=== PATIENT | female | born 1995 | race Caucasian/White ===

== ENCOUNTER 2016-04-17 22:56 | Emergency (ER) | payer BC ==
[2016-04-17] MEDS ORDERED: Ibuprofen TAB* 600 MG PO ONE (23:29)
[2016-04-17 23:54] LABS: Hematocrit 41 % (35-47); Hemoglobin 13.8 g/dl (12.0-16.0); Mean Corpuscular HGB Conc 34 g/dl (31-36); Mean Corpuscular Hemoglobin 31 pg (27-31); Mean Corpuscular Volume 91 fL (80-97); Mean Platelet Volume 7 um3 (7.4-10.4); Red Blood Count 4.45 10^6/ul (4.0-5.4); Red Cell Distribution Width 13 % (10.5-15); White Blood Count 10.9 10^3/ul (3.5-10.8)
[2016-04-18 00:10] LABS: Albumin 4.6 g/dL (3.2-5.2); BUN/Creatinine Ratio 21.1 (8-20); Calcium 9.7 mg/dL (8.6-10.3); Globulin 2.7 g/dL (2-4); Potassium 3.8 mmol/L (3.5-5.0); Total Bilirubin 0.4 mg/dL (0.2-1.0); Total Protein 7.3 g/dL (6.4-8.9)
--- NOTE | 2016-04-18 01:29 | ED ---
Fartun Childs Matthew, scribed for Jace Resendiz on 04/17/16 at 2313 . HPI Chest Pain - HPI Summary HPI Summary: A 20 y/o female presents to the ED with gradually worsening left sided chest pain since 18:00 yesterday. The pain is described as heaviness and radiates down the left side of the chest. The patient denies nausea, vomiting, dizziness , and SOB. The pain is worse with deep breaths and certain position. No FHx of CAD. The patient does not smoke or use control. 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 - History of Current Complaint Chief Complaint: EDChestPainROMI Time Seen by Provider: 04/17/16 23:11 Hx Obtained From: Patient Onset/Duration: Started Days Ago, Atraumatic, Still Present Timing: Constant Initial Severity: Moderate Current Severity: Moderate Chest Pain Location: Mid Sternal Chest Pain Radiates: No Character: Heaviness Aggravating Factor(s): Position, Deep Breaths Associated Signs and Symptoms: Positive: Chest Pain. Negative: Dizziness, Shortness of Breath, Diaphoresis, Nausea, Abdominal Pain, Vomiting - Allergy/Home Medications Allergies/Adverse Reactions: Allergies Allergy/AdvReac Type Severity Reaction Status Date / Time pollen Allergy Eyes Uncoded 11/27/15 18:43 Itchy/Swollen/Red/Watery PMH/Surg Hx/FS Hx/Imm Hx Endocrine/Hematology History: Denies: Hx Diabetes, Hx Thyroid Disease Cardiovascular History: Reports: Hx Hypertension - hypotension Respiratory History: Denies: Hx Asthma, Hx Chronic Obstructive Pulmonary Disease (COPD) GI History: Denies: Hx Ulcer - Surgical History Surgery Procedure, Year, and Place: wisdom teeth 09/19; right ACL Spring 2013 - Immunization History Date of Tetanus Vaccine: utd Date of Influenza Vaccine: utd Infectious Disease History: Denies: Hx Hepatitis, Hx Human Immunodeficiency Virus (HIV), Traveled Outside the [place] in Last 30 Days - Family History Known Family History: Negative: Cardiac Disease, Blood Disorder - Social History Alcohol Use: Occasionally Substance Use Type: Reports: None Smoking Status (MU): Never Smoked Tobacco Review of Systems Constitutional: Negative Negative: Skin Diaphoresis Eyes: Negative ENT: Negative Positive: Chest Pain Respiratory: Negative Negative: Shortness Of Breath Gastrointestinal: Negative Negative: Abdominal Pain, Vomiting, Nausea Genitourinary: Negative Musculoskeletal: Negative Skin: Negative Neurological: Negative Psychological: Normal All Other Systems Reviewed And Are Negative: Yes Physical Exam Triage Information Reviewed: Yes Vital Signs Reviewed: Yes Appearance: Positive: Well-Appearing, No Pain Distress Skin: Positive: Warm, Skin Color Reflects Adequate Perfusion, Dry Head/Face: Positive: Normal Head/Face Inspection Eyes: Positive: EOMI, COLIN ENT: Positive: Normal ENT inspection Neck: Positive: Supple, Nontender Respiratory/Lung Sounds: Positive: Clear to Auscultation, Breath Sounds Present Cardiovascular: Positive: RRR, Pulses are Symmetrical in both Upper and Lower Extremities Abdomen Description: Positive: Nontender, Soft Bowel Sounds: Positive: Present Musculoskeletal: Positive: Other - reproducible left chest tenderness Neurological: Positive: Normal, Sensory/Motor Intact, Alert, Oriented to Person Place, Time Psychiatric: Positive: Affect/Mood Appropriate - Diller Coma Scale Coma Scale Total: 15 Diagnostics - Laboratory Result Diagrams: 04/17/16 23:45 04/17/16 23:45 Lab Statement: Any lab studies that have been ordered have been reviewed, and results considered in the medical decision making process. - Radiology CXR Xray Interpretation: No Acute Changes Radiology Interpretation Completed By: ED Physician - EKG 23:01 Cardiac Rate: NL - 83 bpm EKG Rhythm: Sinus Rhythm EKG Interpretation: No Acute Changes Chest Pain Course/Dx - Course Assessment/Plan: A 20 y/o female presents to the ED with gradually worsening left sided chest pain since 18:00 yesterday. The pain is described as heaviness and radiates down the left side of the chest. The patient denies nausea, vomiting, dizziness, and SOB. The pain is worse with deep breaths and certain position. No FHx of CAD. The patient does not smoke or use control. CXR showed no acute changes. EKG shows NSR at 83 bpm. Labs were reviewed and troponin was 0.00. The patient will be discharged home to follow-up with her PCP. - Diagnoses Provider Diagnoses: Chest pain, Chest wall pain, Costochondritis Discharge - Discharge Plan Condition: Stable Disposition: HOME Prescriptions: Ibuprofen TAB* [Motrin TAB* 600 MG] 600 mg PO Q8H PRN #21 tab PRN Reason: Pain Patient Education Materials: Chest Pain (ED), Costochondritis (ED), Chest Wall Pain (ED) Referrals: Liang Weller MD [Primary Care Provider] - 3 Days Additional Instructions: Please follow-up with your primary care physician in 3 days. The documentation as recorded by the Fartun hamilton Matthew accurately reflects the service I personally performed and the decisions made by , Jace Resendiz.
[2016-04-18 01:52] VITALS: BP 103/62
--- NOTE | 2016-04-18 07:58 | RAD ---
Indication: Chest pain. 2 views of the chest were reviewed. No mediastinal shift is noted. Mild pectus excavatum deformity is noted. Lung lewis are clear. IMPRESSION: No active cardiopulmonary disease is noted.
== END 2016-04-18 01:53 | disposition home or self-care (01) ==
LOC: ED 22:56
DX: M94.0 Chondrocostal junction syndrome [Tietze] (principal); R07.9 Chest pain, unspecified; R07.89 Other chest pain
CPT/HCPCS: 36415; 71020; 80053; 83880; 84484; 85025; 85379; 85610; 85730; 93005; 99283; A9270-GY

== ENCOUNTER 2016-07-02 15:10 | Emergency (ER) | payer BC ==
[2016-07-02 15:27] VITALS: BP 104/61
--- NOTE | 2016-07-02 16:10 | UC ---
Complaint Female HPI - HPI Summary HPI Summary: 21 y/o female presents to the urgent care c/o pain and frequency on urination for the past 6 days. She reports she has HX of recurrent UTI. She has been Dx with uretral diverticulum. Patient states pain is 4/10 and denies back pain, fever, SOB, N/V/D and vaginal discharge. PT is sexually active. - History Of Current Complaint Chief Complaint: UCGU Stated Complaint: POSS UTI Time Seen by Provider: 07/02/16 15:27 Hx Obtained From: Patient Hx Last Menstrual Period: iud, 06/11/2016 ?: No Onset/Duration: Sudden Onset, Lasting Days, Still Present Severity Initially: Mild Severity Currently: Moderate Pain Intensity: 4 Pain Scale Used: 0-10 Numeric Character: Burning Aggravating Factor(s): [place] Associated Signs And Symptoms: Negative: Negative - Risk Factors Ectopic Risk Factor: IUD Use - Allergies/Home Medications Allergies/Adverse Reactions: Allergies Allergy/AdvReac Type Severity Reaction Status Date / Time pollen Allergy Eyes Uncoded 07/02/16 15:27 Itchy/Swollen/Red/Watery Home Medications: Home Medications Apremilast [Otezla] 30 mg PO DAILY 07/02/16 [History Confirmed 07/02/16] PMH/Surg Hx/FS Hx/Imm Hx - Additional Past Medical History Additional PMH: Psoriasis Endocrine History Of: Denies: Diabetes, Thyroid Disease Cardiovascular History Of: Denies: Cardiac Disorders, Hypertension - hypotension Respiratory History Of: Denies: COPD, Asthma GI/ History Of: Denies: Ulcer - Surgical History Surgical History: Yes Surgery Procedure, Year, and Place: wisdom teeth 09/19; right ACL Spring 2013 - Family History Known Family History: Negative: Cardiac Disease, Blood Disorder - Social History Occupation: Student Alcohol Use: Occasionally Substance Use Type: None Smoking Status (MU): Never Smoked Tobacco - Immunization History Vaccination Up to Date: Yes Review of Systems Skin: Negative Eyes: Negative ENT: Negative Respiratory: Negative Cardiovascular: Negative Gastrointestinal: Negative Genitourinary: Dysuria, Frequency Motor: Negative Neurovascular: Negative Musculoskeletal: Negative Neurological: Negative Psychological: Negative All Other Systems Reviewed And Are Negative: Yes Physical Exam Triage Information Reviewed: Yes Appearance: Well-Appearing, No Pain Distress, Well-Nourished, Thin Vital Signs: Initial Vital Signs Temp 98.7 F 07/02/16 15:21 Pulse 82 07/02/16 15:21 Resp 18 07/02/16 15:21 BP 104/61 07/02/16 15:21 Pulse Ox 99 07/02/16 15:21 Vital Signs Reviewed: Yes Eye Exam: Normal Eyes: Positive: Conjunctiva Clear ENT Exam: Normal ENT: Positive: Normal ENT inspection, Hearing grossly normal, Pharynx normal, TMs normal Dental Exam: Normal Neck exam: Normal Neck: Positive: Supple, Nontender, No Lymphadenopathy Respiratory Exam: Normal Respiratory: Positive: Chest non-tender, Lungs clear, Normal breath sounds Cardiovascular Exam: Normal Cardiovascular: Positive: RRR, No Murmur, Pulses Normal Abdomen Description: Positive: Nontender, No Organomegaly. Negative: CVA Tenderness (R), CVA Tenderness (L) Bowel Sounds: Positive: Present Musculoskeletal Exam: Normal Neurological Exam: Normal Psychological Exam: Normal Skin Exam: Normal Complaint Female Dx - Course Course Of Treatment: Patient with HX of recurrent UTI. UA: +leukoesterase and + blood. Urine culture oredered to identify resistance. Patient advised if bacteria is resistant to Macrobid she will be recall for change of antibiotic. Patient undertood and agreed. Pt also instructed to increase fluid intake and drink cramberry juice. F/u with [facility]- urologist - Differential Dx/Diagnosis Differential Diagnosis/HQI/PQRI: Cervicitis, Renal Colic, Ureteral Stone, Urinary Tract Infection Provider Diagnoses: UTI Discharge - Discharge Plan Condition: Stable Disposition: HOME Prescriptions: Nitrofurantoin Monohyd Macro [Macrobid] 100 mg PO BID #14 cap Phenazopyridine TAB* [Pyridium 100 mg TAB*] 200 mdi PO TID #6 tab Patient Education Materials: Urinary Tract Infection in Women (ED) Referrals: Liang Weller MD [Primary Care Provider] - Additional Instructions: Please take medications as directed, increase fluid intake and f/u with you PCP or return to the clinic if symptoms worsen.
== END 2016-07-02 16:10 | disposition home or self-care (01) ==
LOC: UCEAST 15:10
DX: N39.0 Urinary tract infection, site not specified (principal); N28.89 Other specified disorders of kidney and ureter; Z87.440 Personal history of urinary (tract) infections
CPT/HCPCS: 81003; 87077; 87086; 99212; G0463

== ENCOUNTER 2016-10-11 08:36 | Emergency (ER) | payer BC ==
[2016-10-11 08:41] VITALS: BP 113/70
[2016-10-11] MEDS ORDERED: Phenazopyridine TAB* 100 MG PO ONE (08:46)
--- NOTE | 2016-10-11 09:05 | UC ---
Complaint Female HPI - HPI Summary HPI Summary: This is a 21 yo female with h/o freq UTIs secondary to known urinary diverticulum and psoriasis who presents with c/o dysuria x 2d. She reports no associated fever, back pain, n/v. No c/o vaginal dc, itching, or pain. She has an IUD in place. - History Of Current Complaint Chief Complaint: UCGU Stated Complaint: UTI COMPLAINT Hx Last Menstrual Period: 09/16/16 - Allergies/Home Medications Allergies/Adverse Reactions: Allergies Allergy/AdvReac Type Severity Reaction Status Date / Time pollen Allergy Eyes Uncoded 10/11/16 08:41 Itchy/Swollen/Red/Watery PMH/Surg Hx/FS Hx/Imm Hx Previously Healthy: No - psoriasis, freq UTIs, urethral diverticulum - Surgical History Surgical History: Yes Surgery Procedure, Year, and Place: wisdom teeth 09/19; right ACL Spring 2013 - Family History Known Family History: Positive: None Negative: Cardiac Disease, Blood Disorder - Social History Alcohol Use: Occasionally Substance Use Type: None Smoking Status (MU): Never Smoked Tobacco - Immunization History Vaccination Up to Date: Yes Review of Systems Constitutional: Negative Skin: Negative Eyes: Negative ENT: Negative Respiratory: Negative Cardiovascular: Negative Gastrointestinal: Negative Genitourinary: Dysuria Motor: Negative Neurovascular: Negative Musculoskeletal: Negative Neurological: Negative Psychological: Negative All Other Systems Reviewed And Are Negative: Yes Physical Exam Triage Information Reviewed: Yes Appearance: Well-Appearing Vital Signs: Initial Vital Signs Temp 98.3 F 10/11/16 08:37 Pulse 69 10/11/16 08:37 Resp 16 10/11/16 08:37 BP 113/70 10/11/16 08:37 Pulse Ox 99 10/11/16 08:37 Vital Signs Reviewed: Yes ENT Exam: Normal ENT: Positive: Hearing grossly normal Neck: Positive: Supple, Nontender Respiratory: Positive: Lungs clear, Normal breath sounds. Negative: Crackles, Rhonchi, Wheezing Cardiovascular: Positive: RRR, No Murmur Abdominal Exam: Normal Abdomen Description: Positive: Nontender, Soft. Negative: CVA Tenderness (R), CVA Tenderness (L) Musculoskeletal: Positive: Strength Intact Neurological: Positive: Alert Psychological Exam: Normal Skin Exam: Normal Skin: Negative: rashes Diagnostics - Laboratory Diagnostic Studies Completed/Ordered: UA - 1+ LE, 2+ blood, 2+ protein Complaint Female Dx - Course Course Of Treatment: This is a 21 yo female with h/o freq UTIs and psoriasis who presents with c/o 2d of dysuria. UA suggestive of UTI and exam otherwise benign. Reviewed prior C&S data. Appears to be a non-complicated, treat with a 5d course of Macrobid. Urine sent for culture. - Differential Dx/Diagnosis Differential Diagnosis/HQI/PQRI: Pelvic Inflammatory Disease, Sexually Transmitted Disease, Urinary Tract Infection Provider Diagnoses: 1. Uncomplicated UTI Discharge - Discharge Plan Condition: Stable Disposition: HOME Prescriptions: Nitrofurantoin Monohyd Macro [Macrobid] 100 mg PO BID #10 cap Phenazopyridine 200 mg (NF) [Pyridium 200 MG tab *] 200 mg PO TID PRN #15 tab PRN Reason: dysuria Patient Education Materials: Urinary Tract Infection in Women (ED) Referrals: Liang Weller MD [Primary Care Provider] - If Needed Additional Instructions: Instructions: 1. Please take medication as directed 2. If symptoms persist, please follow up here or with your primary care provider
== END 2016-10-11 09:03 | disposition home or self-care (01) ==
LOC: UCEAST 08:36
DX: N39.0 Urinary tract infection, site not specified (principal); B95.7 Other staphylococcus as the cause of diseases classified elsewhere; Z87.440 Personal history of urinary (tract) infections; Z97.5 Presence of (intrauterine) contraceptive device; N36.1 Urethral diverticulum; L40.9 Psoriasis, unspecified
CPT/HCPCS: 81003; 87077; 87086; 99212; A9270-GY; G0463

== ENCOUNTER 2017-03-28 00:39 | Emergency (ER) | payer BC ==
[2017-03-28] MEDS ORDERED: Ibuprofen TAB* 800 MG PO ONE (02:21)
--- NOTE | 2017-03-28 02:30 | ED ---
Lower Extremity - HPI Summary HPI Summary: Patient here with acute on chronic right knee pain. She reports this "pops out " from time to time and she pushes it back in. Tonight it popped out while she was sleeping in bed (got caught in the sheets, twisted in an odd fashion) and has not been able to push it back into place. She reports history of ACL tear with graft and more recently a meniscal tear (MRI report available here). She' s been following with her PCP for recent injury however plans to follow-up with her orthopedic surgeon in [place] for the new meniscal tear. She denies numbness, tingling or weakness however feels her leg is not as strong at the knee joint since this injury tonight - doesn't want it to drag. She has reapplied her knee immobilizer which she's not been wearing since surgery until tonight however does not feel most comfortable in full extension position - prefers some degree of flexion in her knee. Has not had anything for pain in a while - would like ibuprofen at this point in time. She is icing her knee. Came to ED on crutches. LMP: sporadic - has mirena IUD. - History of Current Complaint Chief Complaint: EDExtremityLower Stated Complaint: RT KNEE PAIN Time Seen by Provider: 03/28/17 00:52 Hx Obtained From: Patient, Family/Web Operations Lead - father Hx Last Menstrual Period: 09/16/16 Pain Intensity: 8 - Allergies/Home Medications Allergies/Adverse Reactions: Allergies Allergy/AdvReac Type Severity Reaction Status Date / Time pollen Allergy Eyes Uncoded 02/09/17 11:20 Itchy/Swollen/Red/Watery PMH/Surg Hx/FS Hx/Imm Hx Previously Healthy: Yes Endocrine/Hematology History: Denies: Hx Anticoagulant Therapy, Hx Blood Disorders, Hx Diabetes, Hx Thyroid Disease Cardiovascular History: Denies: Hx Hypertension - hypotension, Hx Pacemaker/ICD, Other Cardiovascular Problems/Disorders Respiratory History: Denies: Hx Asthma, Hx Chronic Obstructive Pulmonary Disease (COPD) GI History: Denies: Hx Ulcer History: Denies: Hx Renal Disease Sensory History: Denies: Hx Hearing Aid Psychiatric History: Denies: Hx Panic Disorder - Surgical History Surgery Procedure, Year, and Place: wisdom teeth 09/19; right ACL Spring 2013 - Immunization History Date of Tetanus Vaccine: utd Date of Influenza Vaccine: utd Infectious Disease History: No Infectious Disease History: Denies: Hx Clostridium Difficile, Hx Hepatitis, Hx Human Immunodeficiency Virus (HIV), Hx of Known/Suspected MRSA, Hx Shingles, Hx Tuberculosis, Hx Known/ Suspected VRE, Hx Known/Suspected VRSA, History Other Infectious Disease, Traveled Outside the [place] in Last 30 Days - Family History Known Family History: Positive: None Negative: Cardiac Disease, Blood Disorder - Social History Occupation: Student Lives: With Family Alcohol Use: Occasionally Hx Substance Use: No Substance Use Type: Reports: None Hx Tobacco Use: No Smoking Status (MU): Never Smoked Tobacco Review of Systems Positive: no symptoms reported Positive: Arthralgia, Decreased ROM Skin: Negative Neurological: Negative Psychological: Normal All Other Systems Reviewed And Are Negative: Yes Physical Exam Triage Information Reviewed: Yes Vital Signs On Initial Exam: Initial Vitals Temp Pulse Resp BP Pulse Ox 99.4 F 128 18 128/82 98 03/28/17 00:41 03/28/17 00:41 03/28/17 00:41 03/28/17 00:41 03/28/17 00:41 Vital Signs Reviewed: Yes Appearance: Positive: Well-Appearing, Well-Nourished, Pain Distress - none at rest, mild w/ movement Skin: Positive: Warm, Skin Color Reflects Adequate Perfusion, Dry - healed vertical scar over anterior Rt knee; diffuse erythematous spots over B/L LE's ( pt reports this is her psoriasis) Head/Face: Positive: Normal Head/Face Inspection Eyes: Positive: Normal, EOMI ENT: Positive: Hearing grossly normal Respiratory/Lung Sounds: Positive: Breath Sounds Present Cardiovascular: Positive: Pulses are Symmetrical in both Upper and Lower Extremities. Negative: Leg Edema Left, Leg Edema Right Musculoskeletal: Positive: Strength/ROM Intact - can move toes, ankle and hip - she can move her Rt knee however it painful; pt has lax joints in general ( observed w/ Lt knee exam), Limited @ - Rt knee limited ROM d/t pain; mild anterior knee edema compared to Lt; popliteal fossa NTTP; NO GROSS DEFORMITY; laxity assessment limited d/t pt's pain w/ minimal movement, Pain @ - TTP over Rt medial knee (tibial plateau is more prominent and palpable on Rt than Lt). Neurological: Positive: Sensory/Motor Intact, Alert, Oriented to Person Place, Time, CN Intact II-III Psychiatric: Positive: Anxious - pleasant, cooperative Diagnostics - Vital Signs Vital Signs Temp Pulse Resp BP Pulse Ox 03/28/17 00:41 99.4 F 128 18 128/82 98 - Laboratory Diagnostic Studies Comment: XR: no acute findings Lab Statement: Any lab studies that have been ordered have been reviewed, and results considered in the medical decision making process. Lower Extremity Course/Dx - Course Course Of Treatment: Patient here with acute on chronic right knee pain. Reports she's had an ACL tear with repair in the past. She just had an MRI and report indicates meniscal tear with cyst. Suspect her pain tonight is from exacerbation of meniscal tear with possible cartilage and/or cyst lodged in the joint creating a sensation of disconnection. No gross deformity observed and x- rays without acute findings. Patient will be discharged with rest, ice, compression with Booker wrap as tolerated and knee immobilizer to prevent any excess movement if ligament or tendon derangement is in fact a factor here. She ambulated him with crutches and may continue to remain nonweightbearing until she follows up with PCP and/or director of orthopedics. She will call in the morning. Review danger signs and symptoms of when to return to the emergency department. Patient father agree with plan. - Diagnoses Provider Diagnoses: Right knee pain Discharge - Discharge Plan Condition: Stable Disposition: HOME Patient Education Materials: Knee Pain (ED) Forms: *School Release Referrals: Levi Asif MD [Medical Doctor] - Liang Weller MD [Primary Care Provider] - Additional Instructions: Rest, ice, elevate, wear knee immobilizer for stability Use crutches to ambulate - no weight bearing Take naproxen with food alternating with acetaminophen for pain Follow-up with orthopedics tomorrow - call in the morning to schedule an appointment tomorrow or Tuesday *If you develop numbness, intractable pain, return to ED
[2017-03-28 03:37] VITALS: BP 116/81
--- NOTE | 2017-03-28 07:52 | RAD ---
INDICATION: Atraumatic right knee pain COMPARISON: None TECHNIQUE: 2 view radiograph of the left knee. FINDINGS: Postsurgical changes are consistent with ACL reconstruction. Otherwise the visualized bones are well-corticated and properly aligned. The joint spaces are properly maintained. There is no radiographic evidence of joint effusion. There is no acute fracture, dislocation or other focal bony abnormality. IMPRESSION: No radiographically apparent acute abnormality of the right knee. If the patient's symptoms persist, follow-up imaging is recommended.
== END 2017-03-28 03:35 | disposition home or self-care (01) ==
LOC: ED 00:39
DX: M25.561 Pain in right knee (principal)
CPT/HCPCS: 99282; A9270-GY

== ENCOUNTER 2017-06-06 19:50 | Emergency (ER) | payer BC ==
[2017-06-06 20:10] VITALS: BP 100/65
--- NOTE | 2017-06-06 20:16 | UC ---
Complaint Female HPI - HPI Summary HPI Summary: Pt presents with pelvic discomfort. She tells me that for the last 2 days she has had a pressure and aching in her suprapubic region. She says that she has a history of UTIs, almost monthly, but this feels a little different. She took AZO today and that did not improve her symptoms. She is having some urinary pressure and frequency, but not as much as she usually does with UTIs. She has an IUD and last had intercourse 2 days ago - felt this "discomfort" directly after and noticed some spotting when she went to the bathroom later that night. Denies fever, chills, SOB, chest pain, abdominal pain, n/v/d/c, vaginal discharge/odor, or flank pain. - History Of Current Complaint Chief Complaint: UCGU Stated Complaint: burning urination Time Seen by Provider: 06/06/17 20:16 Hx Obtained From: Patient Hx Last Menstrual Period: IUD Onset/Duration: Sudden Onset Timing: Constant Severity Initially: Moderate Severity Currently: Moderate Pain Intensity: 6 Pain Scale Used: 0-10 Numeric - Allergies/Home Medications Allergies/Adverse Reactions: Allergies Allergy/AdvReac Type Severity Reaction Status Date / Time pollen Allergy Eyes Uncoded 06/06/17 20:10 Itchy/Swollen/Red/Watery Home Medications: Home Medications Cranberry Conc/C/Bacill Coag [Azo Cranberry Tablet] 1 each PO 06/06/17 [History] Iud* 06/06/17 [History] Topical Steroid Ointments* 06/06/17 [History] PMH/Surg Hx/FS Hx/Imm Hx - Additional Past Medical History Additional PMH: None Previously Healthy: Yes Other History Of: Negative For: Anticoagulant Therapy - Surgical History Surgical History: Yes Surgery Procedure, Year, and Place: wisdom teeth 09/19; right ACL Spring 2013, RIGHT MEDIAL MENISCUS REMOVAL - Family History Known Family History: Positive: None Negative: Cardiac Disease, Blood Disorder - Social History Occupation: Employed Full-time Lives: With Family Alcohol Use: Occasionally Substance Use Type: None Smoking Status (MU): Never Smoked Tobacco - Immunization History Vaccination Up to Date: Yes Review of Systems Constitutional: Negative Skin: Negative Respiratory: Negative Cardiovascular: Negative Gastrointestinal: Negative Genitourinary: Frequency, Urgency, Vaginal/Penile Pain Neurovascular: Negative Neurological: Negative Psychological: Negative All Other Systems Reviewed And Are Negative: Yes Physical Exam - Summary Physical Exam Summary: GENERAL: NAD. WDWN. No pain distress. SKIN: No rashes, sores, lesions, or open wounds. NECK: Supple. Nontender. No lymphadenopathy. CHEST: CTAB. No r/r/w. No accessory muscle use. Breathing comfortably and in no distress. CV: RRR. Without m/r/g. Pulses intact. Brisk cap refill. ABDOMEN: Soft. NTTP. No distention or guarding. No organomegaly. No CVA tenderness. Bowel sounds present NEURO: Alert. CN II-XII grossly intact. PSYCH: Age appropriate behavior. Triage Information Reviewed: Yes Vital Signs: Initial Vital Signs Temp 97.5 F 06/06/17 20:06 Pulse 87 06/06/17 20:06 Resp 16 06/06/17 20:06 BP 100/65 06/06/17 20:06 Pulse Ox 99 06/06/17 20:06 Pelvic Exam: Positive: External Exam Normal, No Cerv. Motion Tender, No Masses, Other - Mild scant yellow/brown discharge.. Negative: Active Bleeding, Blood, Cervicitis, Lesions, Mass, Ulcers - Additional Comments Bozena MCGEE was assisted with pelvic exam Complaint Female Dx - Course Course Of Treatment: UA is unreliable today due to AZO. Cultures for BV and yeast were obtained. Pt did not want testing for GC/Chlamydia. I will treat her as if this is a UTI and call with the results of her vaginal culture and her urine culture. Her past UTIs have shown staph and susceptible to macrobid, which she tolerates well. If all cultures negative - her pain could be related to recent intercourse and if persists, should have f[facility]. - Differential Dx/Diagnosis Provider Diagnoses: Suprapubic pain. Urinary frequency Discharge - Sign-Out/Discharge Documenting (check all that apply): Discharge/Admit/Transfer - Discharge Plan Condition: Stable Disposition: HOME Prescriptions: Nitrofurantoin Monohyd/M-Cryst [Macrobid 100 mg Capsule] 100 mg PO BID #10 cap Phenazopyridine 200 mg (NF) [Pyridium 200 MG tab *] 200 mg PO TID #6 tab Patient Education Materials: Urinary Tract Infection in Women (DC) Referrals: Liang Weller MD [Primary Care Provider] - Additional Instructions: If you develop a fever, shortness of breath, chest pain, new or worsening symptoms - please call your PCP or go to the ED. - Billing Disposition and Condition Condition: STABLE Disposition: HOME
[2017-06-06] MEDS ORDERED: Nitrofurantoin Macrocrystals* 50 MG CAP PO ONE (20:53)
[2017-06-06] MEDS ORDERED: Phenazopyridine TAB* 100 MG PO ONE (20:54)
--- NOTE | 2017-06-09 11:08 | UC ---
- Progress Note Progress Note: Pt with + E. coli await sensitivity Pt on macrobid no change 06/09/2017 [facility] Discharge - Sign-Out/Discharge Documenting (check all that apply): Discharge/Admit/Transfer - Discharge Plan Condition: Stable Disposition: HOME Prescriptions: Nitrofurantoin Monohyd/M-Cryst [Macrobid 100 mg Capsule] 100 mg PO BID #10 cap Phenazopyridine 200 mg (NF) [Pyridium 200 MG tab *] 200 mg PO TID #6 tab Patient Education Materials: Urinary Tract Infection in Women (DC) Referrals: Liang Weller MD [Primary Care Provider] - Additional Instructions: If you develop a fever, shortness of breath, chest pain, new or worsening symptoms - please call your PCP or go to the ED. - Billing Disposition and Condition Condition: STABLE Disposition: HOME
== END 2017-06-06 21:05 | disposition home or self-care (01) ==
LOC: UCEAST 19:50
DX: R10.2 Pelvic and perineal pain (principal); R35.0 Frequency of micturition; B96.20 Unspecified Escherichia coli [E. coli] as the cause of diseases classified elsewhere; Z87.440 Personal history of urinary (tract) infections; Z97.5 Presence of (intrauterine) contraceptive device
CPT/HCPCS: 87077; 87086; 87186; 87480; 87510; 99212; A9270-GY; G0463

== ENCOUNTER 2017-07-31 20:00 | Emergency (ER) | payer BC ==
[2017-07-31 21:04] VITALS: BP 121/79
--- NOTE | 2017-07-31 21:30 | UC ---
Complaint Female HPI - HPI Summary HPI Summary: ONSET LAST NIGHT OF DYSURIA, URINARY FREQUENCY AND URGENCY. MILD NAUSEA. NO FEVER OR BACK PAIN. HAS H/O RECURRENT UTI SINCE AGE 15. GETS THEM ABOUT 5-6 TIMES PER YEAR. - History Of Current Complaint Chief Complaint: UCGU Stated Complaint: POSS UTI Time Seen by Provider: 07/31/17 21:26 Hx Obtained From: Patient Hx Last Menstrual Period: [id number] Onset/Duration: Gradual Onset, Lasting Days - 1 DAY, Still Present Severity Initially: Moderate Severity Currently: Moderate Pain Intensity: 4 Pain Scale Used: 0-10 Numeric Character: Burning Aggravating Factor(s): Urination Alleviating Factor(s): Nothing Associated Signs And Symptoms: Negative: Fever, Back Pain, Vaginal Bleeding/ Discharge, Nausea - Allergies/Home Medications Allergies/Adverse Reactions: Allergies Allergy/AdvReac Type Severity Reaction Status Date / Time pollen Allergy Eyes Uncoded 07/31/17 21:05 Itchy/Swollen/Red/Watery PMH/Surg Hx/FS Hx/Imm Hx - Additional Past Medical History Additional PMH: PSORIASIS Other History Of: Negative For: Anticoagulant Therapy - Surgical History Surgical History: Yes Surgery Procedure, Year, and Place: wisdom teeth 09/19; right ACL Spring 2013, RIGHT MEDIAL MENISCUS REMOVAL - Family History Known Family History: Positive: None Negative: Cardiac Disease, Blood Disorder - Social History Alcohol Use: Weekly Substance Use Type: None Smoking Status (MU): Never Smoked Tobacco - Immunization History Vaccination Up to Date: Yes Review of Systems Constitutional: Negative Respiratory: Negative Cardiovascular: Negative Gastrointestinal: Negative Genitourinary: Dysuria, Frequency, Urgency All Other Systems Reviewed And Are Negative: Yes Physical Exam Triage Information Reviewed: Yes Appearance: Well-Appearing, No Pain Distress, Well-Nourished Vital Signs: Initial Vital Signs Temp 98.3 F 07/31/17 21:01 Pulse 83 07/31/17 21:01 Resp 16 07/31/17 21:01 BP 121/79 07/31/17 21:01 Pulse Ox 99 07/31/17 21:01 Vital Signs Reviewed: Yes Eyes: Positive: Conjunctiva Clear ENT: Positive: Hearing grossly normal Neck: Positive: Supple Respiratory: Positive: No respiratory distress, No accessory muscle use Cardiovascular: Positive: Pulses Normal Abdomen Description: Positive: Soft, Other: - MILDLY TENDER SUPRAPUBIC. Negative: CVA Tenderness (R), CVA Tenderness (L), Distended, Guarding Musculoskeletal: Positive: No Edema Neurological: Positive: Alert Psychological: Positive: Age Appropriate Behavior Skin: Negative: rashes Diagnostics - Laboratory Diagnostic Studies Completed/Ordered: URINE DIP SP. GR. 1.030, 1+ LEUKS, 3+ BLOOD, 3+ BLOOD, TRACE KETONES, POS NITRITES Complaint Female Dx - Course Course Of Treatment: REVIEWED URINE CULTURES FROM PAST 2 YEARS. PATIENT HAS GROWN ESCHERICHIA COLI RESISTANT TO BACTRIM AND ONLY INTERMEDIATELY SENSITIVE TO MACROBID. WILL TREAT WITH CIPRO TWICE DAILY FOR 5 DAYS. ADVISED TO STAY WELL-HYDRATED. DISCUSSED BLACK BOX WARNING ON FLUOROQUINOLONES. PT UNDERSTANDS AND IS WILLING TO TAKE CIPRO. ADVISED TO CONSIDER UROLOGY EVALUATION FOR RECURRENT UTI. URINE SENT FOR CULTURE AND UREAPLASMA/MYCOPLASMA PCR. - Differential Dx/Diagnosis Provider Diagnoses: UTI Discharge - Sign-Out/Discharge Documenting (check all that apply): Discharge/Admit/Transfer - Discharge Plan Condition: Stable Disposition: HOME Prescriptions: Ciprofloxacin TAB* [Cipro 500 MG TAB*] 500 mg PO BID #9 tab Phenazopyridine TAB* [Pyridium TAB*] 200 mg PO TID #6 tab Patient Education Materials: Urinary Tract Infection in Women (ED) Referrals: [facility] [Provider Group] Liang Weller MD [Primary Care Provider] - If Needed Additional Instructions: URINE DIP CONSISTENT WITH URINARY TRACT INFECTION. ON REVIEW OF YOUR MORE RECENT URINE CULTURES YOU HAVE GROWN ESCHERICHIA COLI SEVERAL TIMES THAT HAS BEEN RESISTANT TO BACTRIM AND ONLY INTERMEDIATELY SENSITIVE TO MACROBID. WILL GIVE CIPRO TWICE DAILY FOR 5 DAYS. URINE SENT FOR CULTURE. WILL ALSO SEND YOUR URINE TO EVALUATE FOR MYCOPLASMA AND UREAPLASMA WHICH CAN BE ATYPICAL CAUSES OF UTI. CONSIDER EVALUATION BY UROLOGY FOR YOUR RECURRENT UTI. BE SURE TO STAY WELL-HYDRATED. - Billing Disposition and Condition Condition: STABLE Disposition: Home
[2017-07-31] MEDS ORDERED: Ciprofloxacin TAB* 500 MG PO ONE (21:51)
--- NOTE | 2017-08-03 17:05 | UC ---
- Progress Note Progress Note: please call patient to assure symptoms are resolving/resolved. Let her know she was positive for both E.Coli and Ureaplasma--- Cipro is the treatment f choice for both of these . Be sure she arranges re assessment Discharge - Sign-Out/Discharge Documenting (check all that apply): Post-Discharge Follow Up - Discharge Plan Condition: Stable Disposition: HOME Prescriptions: Ciprofloxacin TAB* [Cipro 500 MG TAB*] 500 mg PO BID #9 tab Phenazopyridine TAB* [Pyridium TAB*] 200 mg PO TID #6 tab Patient Education Materials: Urinary Tract Infection in Women (ED) Referrals: [facility] [Provider Group] Liang Weller MD [Primary Care Provider] - If Needed Additional Instructions: URINE DIP CONSISTENT WITH URINARY TRACT INFECTION. ON REVIEW OF YOUR MORE RECENT URINE CULTURES YOU HAVE GROWN ESCHERICHIA COLI SEVERAL TIMES THAT HAS BEEN RESISTANT TO BACTRIM AND ONLY INTERMEDIATELY SENSITIVE TO MACROBID. WILL GIVE CIPRO TWICE DAILY FOR 5 DAYS. URINE SENT FOR CULTURE. WILL ALSO SEND YOUR URINE TO EVALUATE FOR MYCOPLASMA AND UREAPLASMA WHICH CAN BE ATYPICAL CAUSES OF UTI. CONSIDER EVALUATION BY UROLOGY FOR YOUR RECURRENT UTI. BE SURE TO STAY WELL-HYDRATED. - Billing Disposition and Condition Condition: STABLE Disposition: Home
== END 2017-07-31 22:10 | disposition home or self-care (01) ==
LOC: UCEAST 20:00
DX: N39.0 Urinary tract infection, site not specified (principal); Z91.09 Other allergy status, other than to drugs and biological substances
CPT/HCPCS: 81003; 84702; 87077; 87086; 87186; 87798; 99212; A9270-GY; G0463

== ENCOUNTER 2017-11-17 12:49 | Emergency (ER) | payer BC ==
[2017-11-17 13:02] VITALS: BP 116/78
--- NOTE | 2017-11-17 13:02 | UC ---
Complaint Female HPI - HPI Summary HPI Summary: 22 y/o female w h/o recurrent UTIs, last 07/2017, treated here with ABX well, states for past 2 days + urinary freq, urgency, burning. lower badominal pain, mild. no back pain, fevers, chills. + increased water intake, no help. 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, no recent urologist - History Of Current Complaint Chief Complaint: UCGU Stated Complaint: URINARY ISSUE Time Seen by Provider: 11/17/17 13:02 Hx Obtained From: Patient Hx Last Menstrual Period: 11/12/17 ?: No Onset/Duration: Sudden Onset, Lasting Days - x 2 Timing: Constant Severity Initially: Mild Severity Currently: Mild Pain Intensity: 4 Pain Scale Used: 0-10 Numeric - Allergies/Home Medications Allergies/Adverse Reactions: Allergies Allergy/AdvReac Type Severity Reaction Status Date / Time pollen Allergy Eyes Uncoded 11/17/17 13:02 Itchy/Swollen/Red/Watery PMH/Surg Hx/FS Hx/Imm Hx Previously Healthy: No - h/o UTI recurrent since age 15 Other History Of: Negative For: Anticoagulant Therapy - Surgical History Surgical History: Yes Surgery Procedure, Year, and Place: wisdom teeth 09/19; right ACL Spring 2013, RIGHT MEDIAL MENISCUS REMOVAL - Family History Known Family History: Positive: None Negative: Cardiac Disease, Blood Disorder - Social History Alcohol Use: Weekly Substance Use Type: None Smoking Status (MU): Never Smoked Tobacco - Immunization History Vaccination Up to Date: Yes Review of Systems Genitourinary: Dysuria, Frequency, Urgency Is Patient Immunocompromised?: No All Other Systems Reviewed And Are Negative: Yes Physical Exam Triage Information Reviewed: Yes Appearance: Well-Appearing, No Pain Distress, Well-Nourished Vital Signs: Initial Vital Signs Temp 97.7 F 11/17/17 12:59 Pulse 77 11/17/17 12:59 Resp 16 11/17/17 12:59 BP 116/78 11/17/17 12:59 Pulse Ox 99 11/17/17 12:59 Vital Signs Reviewed: Yes Cardiovascular: Positive: RRR, No Murmur Abdomen Description: Positive: No Organomegaly, Soft, Other: - suprapubic tenderness no rebound, no gaurdign. Negative: CVA Tenderness (R), CVA Tenderness (L), Distended, Guarding Psychological Exam: Normal Complaint Female Dx - Course Course Of Treatment: + UA, cultures sent, started on abx, referral for urologist for further work up, eval. - Differential Dx/Diagnosis Differential Diagnosis/HQI/PQRI: Urinary Tract Infection Provider Diagnoses: UTI Discharge - Sign-Out/Discharge Documenting (check all that apply): Patient Departure All imaging exams completed and their final reports reviewed: No Studies - Discharge Plan Condition: Good Disposition: HOME Prescriptions: Amoxicillin/Clavulanate TAB* [Augmentin TAB 875*] 875 mg PO BID #14 tab Phenazopyridine 200 mg (NF) [Pyridium 200 MG tab *] 200 mg PO TID PRN #20 tab PRN Reason: urinary spasms Terbinafine HCl [Lamisil At [place]] 1 % TOPICAL BID #1 tube Patient Education Materials: Urinary Tract Infection in Women (ED) Referrals: Liang Weller MD [Primary Care Provider] - Desmond Quiles MD [Medical Doctor] - Additional Instructions: - Antibiotics as directed -Increase fluid intake - Go to ER with fever, chills, back pain - Follow up with urologist - Motrin, tylenol as needed for pain - Billing Disposition and Condition Condition: GOOD Disposition: Home
[2017-11-17] MEDS ORDERED: Amoxicillin/Clavulanate TAB* 875 MG PO ONE (13:14)
[2017-11-17] MEDS ORDERED: Phenazopyridine TAB* 100 MG PO ONE (13:16)
--- NOTE | 2017-11-19 17:15 | PN ---
Progress Note - Progress Note Date of Service: 11/19/17 Note: patient urine culture grew staph sprophyticus 25-50,000. patient placed on amoxicillin which should be sensitive to. no further action required
--- NOTE | 2017-11-20 07:34 | UC ---
- Progress Note Progress Note: urine culture grew S.saprophyticus, treated with Augmentin, no further action . Discharge - Sign-Out/Discharge Documenting (check all that apply): Patient Departure All imaging exams completed and their final reports reviewed: No Studies - Discharge Plan Condition: Good Disposition: HOME Prescriptions: Amoxicillin/Clavulanate TAB* [Augmentin TAB 875*] 875 mg PO BID #14 tab Phenazopyridine 200 mg (NF) [Pyridium 200 MG tab *] 200 mg PO TID PRN #20 tab PRN Reason: urinary spasms Terbinafine HCl [Lamisil At [place]] 1 % TOPICAL BID #1 tube Patient Education Materials: Urinary Tract Infection in Women (ED) Referrals: Liang Weller MD [Primary Care Provider] - Desmond Quiles MD [Medical Doctor] - Additional Instructions: - Antibiotics as directed -Increase fluid intake - Go to ER with fever, chills, back pain - Follow up with urologist - Motrin, tylenol as needed for pain - Billing Disposition and Condition Condition: GOOD Disposition: Home
== END 2017-11-17 13:33 | disposition home or self-care (01) ==
LOC: UCEAST 12:49
DX: N39.0 Urinary tract infection, site not specified (principal); B95.7 Other staphylococcus as the cause of diseases classified elsewhere; Z87.440 Personal history of urinary (tract) infections
CPT/HCPCS: 81003; 87086; 87088; 99212; A9270-GY; G0463

== ENCOUNTER 2017-12-04 21:47 | Emergency (ER) | payer BC ==
[2017-12-04] MEDS ORDERED: NS 0.9% 1000 ML* 1,000 ML IV ONE (22:12)
--- NOTE | 2017-12-04 22:15 | ED ---
Influenza-Like Illness - HPI Summary HPI Summary: Patient complains of fatigue, fever up to 103.2, chills, headache, dry cough, shortness of breath, lightheadedness starting yesterday. Patient has been taking Tylenol for fever control. Last Tylenol 9 PM. Denies ear pain, neck stiffness, sore throat, CP, nasal congestion, nausea vomiting diarrhea, abdominal pain, change in urine, change in BM. Medical history psoriasis - History of Current Complaint Chief Complaint: EDUpperRespComplaint Time Seen by Provider: 12/04/17 21:56 Hx Obtained From: Patient Onset/Duration: Gradual Onset Severity: Moderate Associated Signs & Symptoms: Fever, Cough, Headache - Allergy/Home Medications Allergies/Adverse Reactions: Allergies Allergy/AdvReac Type Severity Reaction Status Date / Time pollen Allergy Eyes Uncoded 11/17/17 13:02 Itchy/Swollen/Red/Watery PMH/Surg Hx/FS Hx/Imm Hx Endocrine/Hematology History: Denies: Hx Anticoagulant Therapy, Hx Blood Disorders, Hx Diabetes, Hx Thyroid Disease Cardiovascular History: Denies: Hx Hypertension - hypotension, Hx Pacemaker/ICD, Other Cardiovascular Problems/Disorders Respiratory History: Denies: Hx Asthma, Hx Chronic Obstructive Pulmonary Disease (COPD) GI History: Denies: Hx Ulcer History: Denies: Hx Renal Disease Sensory History: Denies: Hx Hearing Aid Psychiatric History: Denies: Hx Panic Disorder - Surgical History Surgery Procedure, Year, and Place: wisdom teeth 09/19; right ACL Spring 2013, RIGHT MEDIAL MENISCUS REMOVAL - Immunization History Date of Tetanus Vaccine: utd Date of Influenza Vaccine: utd Infectious Disease History: No Infectious Disease History: Denies: Hx Clostridium Difficile, Hx Hepatitis, Hx Human Immunodeficiency Virus (HIV), Hx of Known/Suspected MRSA, Hx Shingles, Hx Tuberculosis, Hx Known/ Suspected VRE, Hx Known/Suspected VRSA, History Other Infectious Disease, Traveled Outside the [place] in Last 30 Days - Family History Known Family History: Positive: None Negative: Cardiac Disease, Blood Disorder - Social History Alcohol Use: Weekly Hx Substance Use: No Substance Use Type: Reports: None Hx Tobacco Use: No Smoking Status (MU): Never Smoked Tobacco Review of Systems Positive: Fever, Chills Eyes: Negative ENT: Negative Cardiovascular: Negative Positive: Shortness Of Breath, Cough Gastrointestinal: Negative Genitourinary: Negative Musculoskeletal: Negative Skin: Negative Positive: Headache Psychological: Normal All Other Systems Reviewed And Are Negative: Yes Physical Exam - Summary Physical Exam Summary: Physical exam unremarkable. Triage Information Reviewed: Yes Vital Signs On Initial Exam: Initial Vitals Temp Pulse Resp BP Pulse Ox 99.2 F 123 20 111/71 96 12/04/17 21:49 12/04/17 21:49 12/04/17 21:49 12/04/17 21:49 12/04/17 21:49 Vital Signs Reviewed: Yes Appearance: Positive: Well-Appearing Skin: Positive: Warm Head/Face: Positive: Normal Head/Face Inspection Eyes: Positive: Normal ENT: Positive: Normal ENT inspection Neck: Positive: Supple Respiratory/Lung Sounds: Positive: Clear to Auscultation Cardiovascular: Positive: Normal Abdomen Description: Positive: Nontender Musculoskeletal: Positive: Normal Neurological: Positive: Normal Psychiatric: Positive: Normal AVPU Assessment: Alert - [place] Coma Scale Best Eye Response: 4 - Spontaneous Best Motor Response: 6 - Obeys Commands Best Verbal Response: 5 - Oriented Coma Scale Total: 15 Diagnostics - Vital Signs Vital Signs Temp Pulse Resp BP Pulse Ox 12/04/17 22:02 116 96 12/04/17 22:01 106 114/75 12/04/17 21:49 99.2 F 123 20 111/71 96 - Laboratory Result Diagrams: 12/04/17 22:02 12/04/17 22:02 Lab Statement: Any lab studies that have been ordered have been reviewed, and results considered in the medical decision making process. Flu Symptom Course/Dx - Course Course Of Treatment: Patient complains of fatigue, fever up to 103.2, chills, headache, dry cough, shortness of breath, lightheadedness starting yesterday. Patient has been taking Tylenol for fever control. Last Tylenol 9 PM. Denies ear pain, neck stiffness, sore throat, CP, nasal congestion, nausea vomiting diarrhea, abdominal pain, change in urine, change in BM. Medical history psoriasis. Physical exam unremarkable. Patient tachycardic at 123 at triage. Afebrile. Labs unremarkable. Flu negative. Chest x-ray suspicious for left lower lobe infiltrate. Tachycardia resolved with 1 L of normal saline. Rx for azithromycin. Follow-up with primary care - Diagnoses Provider Diagnoses: Pneumonia Discharge - Sign-Out/Discharge Documenting (check all that apply): Patient Departure - Discharge Plan Condition: Stable Disposition: HOME Patient Education Materials: Pneumonia (ED) Referrals: Liang Weller MD [Primary Care Provider] - Additional Instructions: Take antibiotics as directed. Follow-up with primary care. Return to the ED for any new or worsening symptoms - Billing Disposition and Condition Condition: STABLE Disposition: Home
[2017-12-04 22:19] LABS: ABS Basophils 0 10^3/ul (0-0.2); ABS Eosinophils 0 10^3/ul (0-0.6); ABS Lymphocytes 1.1 10^3/ul (1.0-4.8); ABS Monocytes 0.6 10^3/ul (0-0.8); ABS Neutrophils 5.9 10^3/ul (1.5-7.7); ABS Nucleated RBC 0 10^3/ul; Eosinophil % 0 % (0-6); Hematocrit 38 % (35-47); Lymphocyte % 14.2 % (25-47); Mean Corpuscular HGB Conc 34 g/dl (31-36); Mean Corpuscular Hemoglobin 31 pg (27-31); Mean Corpuscular Volume 91 fL (80-97); Mean Platelet Volume 6.8 um3 (7.4-10.4); Nucleated Red Blood Cells % 0; Platelet Count 194 10^3/ul (150-450); Red Blood Count 4.15 10^6/ul (4.00-5.40); Red Cell Distribution Width 13 % (10.5-15); White Blood Count 7.6 10^3/ul (3.5-10.8)
[2017-12-04 22:31] LABS: EGFR Non-African American 106.4 (>60)
[2017-12-04] MEDS ORDERED: Azithromycin TAB* 250 MG PO ONE (23:16)
[2017-12-04 23:35] VITALS: BP 108/63
--- NOTE | 2017-12-05 07:45 | RAD ---
INDICATION: Shortness of breath and cough. COMPARISON: Comparison is made with a prior study from April 17, 2016. TECHNIQUE: A portable view of the chest was obtained. FINDINGS: Cardiac and mediastinal contours appear to be within normal limits. There is a small left basilar infiltrate. The right lung appears clear. No pleural effusion is seen. IMPRESSION: SMALL LEFT BASILAR INFILTRATE. R0
== END 2017-12-04 23:44 | disposition home or self-care (01) ==
LOC: ED 21:47
DX: J18.9 Pneumonia, unspecified organism (principal)
CPT/HCPCS: 36415; 71045; 80053; 83605; 84702; 85025; 86140; 96360; 99283; A9270-GY

== ENCOUNTER 2018-07-29 08:13 | Emergency (ER) | payer BC ==
[2018-07-29 08:22] VITALS: BP 116/73
[2018-07-29] MEDS ORDERED: Phenazopyridine TAB* 100 MG PO ONE (08:27)
--- NOTE | 2018-07-29 08:34 | UC ---
Complaint Female HPI - HPI Summary HPI Summary: patient reports 2 day history burning urine, frequency. has had hx frequent UTIs. has been evaluated by urology in past. currently on Mirena and has menses 2 weeks ago (irreg). has taken no meds - History Of Current Complaint Chief Complaint: UCGeneralIllness Stated Complaint: URINARY COMPLAINT Time Seen by Provider: 07/29/18 08:15 Hx Obtained From: Patient Hx Last Menstrual Period: July 11. ?: No Onset/Duration: Sudden Onset Timing: Constant Severity Initially: Mild Severity Currently: Moderate Pain Intensity: 5 Character: Burning Aggravating Factor(s): Urination Alleviating Factor(s): Nothing Associated Signs And Symptoms: Positive: Negative. Negative: Fever, Back Pain, Nausea Related Hx: Similar Episode/Dx as: - UTI - Allergies/Home Medications Allergies/Adverse Reactions: Allergies Allergy/AdvReac Type Severity Reaction Status Date / Time pollen Allergy Eyes Uncoded 07/29/18 08:23 Itchy/Swollen/Red/Watery Home Medications: Home Medications Levonorgestrel (Iud) [Mirena IUD] 20 mcg IU 07/29/18 [History] Topical Steroid 07/29/18 [History] PMH/Surg Hx/FS Hx/Imm Hx Previously Healthy: Yes Other History Of: Negative For: Anticoagulant Therapy - Surgical History Surgical History: Yes Surgery Procedure, Year, and Place: wisdom teeth 09/19; right ACL Spring 2013, RIGHT MEDIAL MENISCUS - Family History Known Family History: Positive: None Negative: Cardiac Disease, Blood Disorder - Social History Occupation: Employed Full-time - RN Lives: With Family Alcohol Use: Weekly Alcohol Amount: 1x Substance Use Type: None Smoking Status (MU): Never Smoked Tobacco - Immunization History Vaccination Up to Date: Yes Review of Systems All Other Systems Reviewed And Are Negative: Yes Constitutional: Positive: Negative Skin: Positive: Negative Respiratory: Positive: Negative Cardiovascular: Positive: Negative Genitourinary: Positive: Dysuria, Frequency Neurological: Positive: Negative Psychological: Positive: Negative Is Patient Immunocompromised?: No Physical Exam Triage Information Reviewed: Yes Appearance: Well-Appearing, No Pain Distress, Well-Nourished Vital Signs: Initial Vital Signs Temp 98.9 F 07/29/18 08:18 Pulse 79 07/29/18 08:18 Resp 14 07/29/18 08:18 BP 116/73 07/29/18 08:18 Pulse Ox 98 07/29/18 08:18 Vital Signs Reviewed: Yes Respiratory Exam: Normal Respiratory: Positive: Lungs clear Cardiovascular Exam: Normal Cardiovascular: Positive: RRR Abdominal Exam: Normal Abdomen Description: Negative: CVA Tenderness (R), CVA Tenderness (L) Psychological Exam: Normal Skin Exam: Normal Complaint Female Dx - Differential Dx/Diagnosis Differential Diagnosis/HQI/PQRI: Ureteral Stone, Urinary Tract Infection Provider Diagnosis: UTI (urinary tract infection) Discharge - Sign-Out/Discharge Documenting (check all that apply): Patient Departure All imaging exams completed and their final reports reviewed: No Studies - Discharge Plan Condition: Good Disposition: HOME Prescriptions: Ciprofloxacin TAB* [Cipro 500 MG TAB*] 500 mg PO BID #10 tab Phenazopyridine 200 mg (NF) [Pyridium 200 MG tab *] 200 mg PO TID PRN #9 tab PRN Reason: Pain Patient Education Materials: Urinary Tract Infection in Women (ED) Referrals: Liang Weller MD [Primary Care Provider] - 2 Days (recheck if no better) Additional Instructions: drink plenty of fluids start cipro antibiotic and take as directed pyridium as directed for discomfort report to ER if you experience fever, chills or worsening pain - Billing Disposition and Condition Condition: GOOD Disposition: Home - Attestation Statements Provider Attestation: I was available for consult. This patient was seen by the MARINE. The patient was not presented to, seen by, or examined by me. -Yuliet
--- NOTE | 2018-07-30 16:08 | UC ---
- Progress Note Progress Note: 07/30/2018 Preliminary urine culture positive for E.coli Pt Rx Ciprofloxacin PO which cover for it Awaiting final sensitivity report. No change Candida LUA Course/Dx - Diagnoses Provider Diagnoses: UTI (urinary tract infection) Discharge - Sign-Out/Discharge Documenting (check all that apply): Post-Discharge Follow Up All imaging exams completed and their final reports reviewed: No Studies - Discharge Plan Condition: Good Disposition: HOME Prescriptions: Ciprofloxacin TAB* [Cipro 500 MG TAB*] 500 mg PO BID #10 tab Phenazopyridine 200 mg (NF) [Pyridium 200 MG tab *] 200 mg PO TID PRN #9 tab PRN Reason: Pain Patient Education Materials: Urinary Tract Infection in Women (ED) Referrals: Liang Weller MD [Primary Care Provider] - 2 Days (recheck if no better) Additional Instructions: drink plenty of fluids start cipro antibiotic and take as directed pyridium as directed for discomfort report to ER if you experience fever, chills or worsening pain - Billing Disposition and Condition Condition: GOOD Disposition: Home
== END 2018-07-29 08:54 | disposition home or self-care (01) ==
LOC: UCEAST 08:13
DX: N39.0 Urinary tract infection, site not specified (principal); B96.20 Unspecified Escherichia coli [E. coli] as the cause of diseases classified elsewhere
CPT/HCPCS: 81003; 87077; 87086; 87186; 99212; A9270-GY; G0463

== ENCOUNTER 2019-03-06 16:13 | Emergency (ER) | payer BC ==
[2019-03-06 16:45] VITALS: BP 102/82
--- NOTE | 2019-03-06 17:11 | UC ---
FLU HPI - HPI Summary HPI Summary: 23-year-old female presents with onset of general malaise, fatigue, headache, body aches, chills, nasal congestion, sore throat, and a nonproductive cough. No measured fever. 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 Denies ear pain, dysphagia, chest pain, shortness of breath, abdominal pain, nausea, vomiting, or diarrhea. - History of Current Complaint Chief Complaint: UCGeneralIllness Stated Complaint: FLU LIKE SYMPTOMS Time Seen by Provider: 03/06/19 17:05 Hx Obtained From: Patient Hx Last Menstrual Period: months Pain Intensity: 7 - Allergy/Home Medications Allergies/Adverse Reactions: Allergies Allergy/AdvReac Type Severity Reaction Status Date / Time pollen Allergy Eyes Uncoded 03/06/19 16:44 Itchy/Swollen/Red/Watery Home Medications: Home Medications Ixekizumab [Taltz Autoinjector] 1 vial SUBCUT SEE INSTRUCTIONS 03/06/19 [ History Confirmed 03/06/19] PMH/Surg Hx/FS Hx/Imm Hx Previously Healthy: Yes Other History Of: Negative For: Anticoagulant Therapy - Surgical History Surgical History: Yes Surgery Procedure, Year, and Place: wisdom teeth 09/19; right ACL Spring 2013, RIGHT MEDIAL MENISCUS - Family History Known Family History: Positive: Non-Contributory - Social History Occupation: Employed Full-time Lives: With Family Alcohol Use: Weekly Alcohol Amount: 1x Substance Use Type: None Smoking Status (MU): Never Smoked Tobacco - Immunization History Vaccination Up to Date: Yes Review of Systems All Other Systems Reviewed And Are Negative: Yes Constitutional: Positive: Chills, Fatigue Eyes: Negative: Drainage, Eye Redness ENT: Positive: Sore Throat, Nasal Discharge, Sinus Congestion. Negative: Ear Ache, Sinus Pain/Tenderness Respiratory: Positive: Cough. Negative: Shortness Of Breath Cardiovascular: Negative: Palpitations, Chest Pain Gastrointestinal: Negative: Abdominal Pain, Vomiting, Diarrhea, Nausea Genitourinary: Positive: Negative Musculoskeletal: Positive: Myalgia Neurological: Positive: Headache Physical Exam - Summary Physical Exam Summary: GENERAL APPEARANCE: Well developed, well nourished, alert and cooperative, and appears to be in no acute distress. EYES: Conjunctiva clear. No drainage. EARS: External auditory canals and tympanic membranes clear, hearing grossly intact. NOSE: Moderate nasal congestion. No nasal discharge. THROAT: Pharyngeal erythema. No tonsilar inflammation, swelling, exudate, or lesions. Uvula midline. NECK: Neck supple, non-tender without lymphadenopathy. CARDIAC: Normal S1 and S2. No S3, S4 or murmurs. Rhythm is regular. There is no peripheral edema, cyanosis or pallor. Extremities are warm and well perfused. Capillary refill is less than 2 seconds. Peripheral pulses intact. LUNGS: Clear to auscultation without rales, rhonchi, wheezing or diminished breath sounds. Dry nonproductive cough. ABDOMEN: Positive bowel sounds. Soft, nondistended, nontender. No guarding or rebound. No masses or hepatosplenomegally. MUSKULOSKELETAL: ROM intact to all extremities. No joint erythema or tenderness. Normal muscular development. Normal gait. SKIN: Skin normal color, texture and turgor with no lesions or eruptions. Triage Information Reviewed: Yes Vital Signs: Initial Vital Signs Temp 100.2 F 03/06/19 16:38 Pulse 107 03/06/19 16:38 Resp 17 03/06/19 16:38 BP 102/82 03/06/19 16:38 Pulse Ox 98 03/06/19 16:38 Vital Signs Reviewed: Yes Flu Course/Dx - Course Course Of Treatment: 23-year-old female presents with onset of general malaise, fatigue, headache, body aches, chills, nasal congestion, sore throat, and a nonproductive cough. No measured fever. 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 Denies ear pain, dysphagia, chest pain, shortness of breath, abdominal pain, nausea, vomiting, or diarrhea. Patient had a mildly elevated temperature of 100.1 F with a corresponding tachycardia otherwise vital signs were stable. Patient had moderate nasal congestion, pharyngeal erythema without tonsillar swelling or exudate, no cervical lymphadenopathy, clear bilateral breath sounds, dry nonproductive cough, and otherwise unremarkable exam. Rapid influenza was positive for influenza B. Results reviewed with the patient. We discussed risks and benefits of treating with Tamiflu and patient is electing to do so at this time. Also recommending symptomatic treatment at this time including Tessalon Perles 1 capsule every 8 hours as needed for cough. She is to follow-up with her primary care provider in 5-7 days if symptoms are not improving. Anticipatory guidance warning symptoms were reviewed with patient. Verbalizes understanding and agrees with plan of care. - Differential Dx/Diagnosis Differential Diagnosis/HQI/PQRI: Bronchitis, Influenza, Pneumonia, Upper Respiratory Infection Provider Diagnosis: Influenza B Discharge ED - Sign-Out/Discharge Documenting (check all that apply): Patient Departure All imaging exams completed and their final reports reviewed: No Studies - Discharge Plan Condition: Stable Disposition: HOME Prescriptions: Benzonatate CAP* [Tessalon 100 MG CAP*] 100 mg PO TID PRN #21 cap PRN Reason: Cough Oseltamivir CAP* [Tamiflu CAP*] 75 mg PO BID #10 cap Patient Education Materials: Influenza (ED) Forms: *Work Release Referrals: Liang Weller MD [Primary Care Provider] - Additional Instructions: Your flu test in the clinic today was positive for influenza A. Start Tamiflu 1 capsule twice a day for 5 days. Get plenty of rest. Drink plenty of fluids to avoid dehydration especially if you are running any fever. Take over the counter acetaminophen (Tylenol) or ibuprofen (Advil, Motrin) according to directions as needed for pain or fever. Take Tessalon Perles 1 cap every 8 hours as needed for cough. Use salt water gargles several times a day if you have a sore throat. You may also use Chloraseptic spray or Cepacol lonzenges according to directions which contain a numbing medication and can provide some temporary relief from your sore throat. Follow up with your primary care provider in 7 days if symptoms persist. Seek immediate medical attention in the emergency room if you have fever greater than 100.5 F despite taking acetaminophen or ibuprofen, have chest pain , difficulty breathing, are unable to swallow, or have any worsening of symptoms. - Billing Disposition and Condition Condition: STABLE Disposition: Home
[2019-03-07 10:27] LABS: Influenza B Molecular POSITIVE (Negative)
== END 2019-03-06 17:30 | disposition home or self-care (01) ==
LOC: UCEAST 16:13
DX: J10.1 Influenza due to other identified influenza virus with other respiratory manifestations (principal); R10.9 Unspecified abdominal pain; R19.7 Diarrhea, unspecified; Z91.09 Other allergy status, other than to drugs and biological substances
CPT/HCPCS: 87651; 99212; G0463